=== PATIENT | male | born 1960 | race Native Hawaiian/Other Pacific Islander ===

== ENCOUNTER 2018-10-01 06:59 | Outpatient (CLI) | payer OTHER | END 2018-10-01 07:00 | disposition home or self-care (01) | LOC: C.CARD 06:59 | DX: R07.9 Chest pain, unspecified (principal); R06.02 Shortness of breath ==

== ENCOUNTER 2018-10-23 07:08 | Outpatient (CLI) | payer OTHER | END 2018-10-23 07:09 | disposition home or self-care (01) | LOC: C.CARD 07:08 | DX: R07.9 Chest pain, unspecified (principal) ==